=== PATIENT | female | born 1955 | race Caucasian/White ===

== ENCOUNTER 2017-02-18 17:03 | Emergency (ER) | payer OTHER ==
[~2017-02-18] VITALS: Ht 152.4 cm; Wt 50.3 kg
[~2017-02-18 17:03] MED LIST: ALBU18HF IH; ALBU6.7H IH; BUDE10.22 IH; CYCL10TA2 PO; HYDR-2666 PO; HYDR-971 PO; ONDA4TAB10 SL; PANT40TA3 PO; PRED-220 PO; PRED20TA PO; PREG50CA PO; TIZA4TAB PO; TRAM50TA PO
--- NOTE | 2017-02-18 18:15 | RAD ---
PROCEDURE CT head without contrast. CT cervical spine without contrast. HISTORY Fall today with loss of consciousness. Headache and neck pain. TECHNIQUE Noncontrast CT head was obtained. Axial images and coronal and sagittal re-formatted images of the cervical spine were obtained. One or more of the following individualized dose reduction techniques were utilized for this exam: 1. Automated exposure control. 2. Adjustment of the mA and/or kV according to patient's size. 3. Use of iterative reconstruction technique. COMPARISON None. FINDINGS Head: The ventricles and sulci are within normal limits for age. There is no intracranial hemorrhage or extra-axial fluid collection. There is no mass effect or midline shift. Rivera-white differentiation is preserved. There is no depressed skull fracture. The included paranasal sinuses and mastoid air cells are clear. Cervical spine: There is no fracture or dislocation. Prevertebral soft tissues are within normal limits. Craniovertebral junction is unremarkable. Anterior cervical fusion at C5-C6 with incorporated bone cage is noted. There is no significant canal or foraminal compromise apparent, minimal degenerative changes noted at C4-C5. There is apical emphysema. There are carotid artery calcifications. IMPRESSION 1. No acute intracranial findings. 2. Negative for fracture or dislocation in the cervical spine. 3. Anterior cervical fusion of C5-C6. Electronically signed by: Yoel Saenz MD (Feb 18, 2017 18:13:18)
[2017-02-18 18:19] LABS: BILIRUBIN,URINE NEG (NEG); CLARITY,URINE HAZY; COLOR,URINE YELLOW; GLUCOSE,URINE NEG (NEG)
[2017-02-18 18:20] LABS: NITRITE,URINE NEG (NEG); UROBILINOGEN,URINE 0.2 mg/dL (0.2 mg/dL)
[2017-02-18 18:21] LABS: BACTERIA,URINE FEW /HPF (0-FEW); SQUAMOUS EPITHELIAL CELL,UR MANY /LPF
[2017-02-18 18:30] VITALS: BP 146/74
--- NOTE | 2017-02-18 19:02 | PHYS DOC ---
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 There was no loss of consciousness. She complains about pain in her right buttocks she was ambulatory at the scene. She denies any neck pain or radicular symptoms. She states she is worried that this may exacerbate her sciatica. Eyes any bowel or bladder dysfunction or saddle paresthesias. [] Review of Systems Review of Systems Constitutional: Denies fever or chills [] Eyes: Denies change in visual acuity, redness, or eye pain [] HENT: Denies nasal congestion or sore throat [] Respiratory: Denies cough or shortness of breath [] Cardiovascular: No additional information not addressed in HPI [] GI: Denies abdominal pain, nausea, vomiting, bloody stools or diarrhea [] : Denies dysuria or hematuria [] Musculoskeletal: Per history of present illness [] Integument: Denies rash or skin lesions [] Neurologic: Denies headache, focal weakness or sensory changes [] Endocrine: Denies polyuria or polydipsia [] Allergies Allergies Allergies Coded Allergies Type Severity Reaction Last Updated Verified Sulfa (Sulfonamide Antibiotics) Allergy Intermediate 01/19/17 Yes cephalexin Allergy Intermediate 01/19/17 Yes codeine Allergy Intermediate 01/19/17 Yes iodine Allergy Intermediate 01/19/17 Yes egg Allergy Unknown 01/19/17 Yes milk Allergy Unknown 01/19/17 Yes Uncoded Allergies Type Severity Reaction Last Updated Verified FLU SHOT Allergy Unknown 01/19/17 Physical Exam Physical Exam Constitutional: Well developed, well nourished, no acute distress, non-toxic appearance. [] HENT: Normocephalic, atraumatic, bilateral external ears normal, oropharynx moist, no oral exudates, nose normal. [] Eyes: PERRLA, EOMI, conjunctiva normal, no discharge. [] Neck: Normal range of motion, no tenderness, supple, no stridor. [] Cardiovascular:Heart rate regular rhythm, no murmur [] Lungs & Thorax: Bilateral breath sounds clear to auscultation [] Abdomen: Bowel sounds normal, soft, no tenderness, no masses, no pulsatile masses. [] Skin: Warm, dry, no erythema, no rash. [] Back: She is tender in the right lower lumbar paraspinal region no midline tenderness there is no bruising or redness consistent with a contusion in the area. Her thoracic spine is benign her neck is benign to exam including palpation of paraspinal muscles no midline tenderness for range of motion including flexion-extension side bending and rotation.. [] Extremities: No tenderness, no cyanosis, no clubbing, ROM intact, no edema. [] Neurologic: Alert and oriented X 3, normal motor function, normal sensory function, no focal deficits noted. [] Psychologic: Affect normal, judgement normal, mood normal. [] Current Patient Data Vital Signs Vital Signs Date Time Temp Pulse Resp B/P Pulse Ox O2 Delivery O2 Flow Rate FiO2 02/18/17 18:30 98.8 73 20 146/74 98 Room Air Lab Results Laboratory Tests Test 02/18/17 17:30 Urine Collection Type Unknown Urine Color Yellow Urine Clarity Hazy Urine pH 5.5 Urine Specific [place] >=1.030 Urine Protein 30 mg/dl (NEG-TRACE) Urine Glucose (UA) Negmg/dL (NEG) Urine Ketones (Stick) 15mg/dL (NEG) Urine Blood Trace (NEG) Urine Nitrite Neg (NEG) Urine Bilirubin Neg (NEG) Urine Urobilinogen Dipstick 0.2mg/dL (0.2 mg/dL) Urine Leukocyte Esterase Neg (NEG) Urine RBC 1-2/HPF (0-2) Urine WBC 11-20/HPF (0-4) Urine Squamous Epithelial Cells Many/LPF Urine Bacteria Few/HPF (0-FEW) Urine Mucus Marked/LPF EKG EKG [] Radiology/Procedures Radiology/Procedures [] Course & Med Decision Making Course & Med Decision Making Pertinent Labs and Imaging studies reviewed. (See chart for details) [ED course: Evaluation reveals a 61-year-old female who has fortunately not seriously injured by a fall. Her exam showed some tenderness in the lumbar region but nothing significant. I reassured the patient that I think she'll be okay going forward. I think she needs to follow with workman's comp doctor in the next 24-48 hours for reevaluation.] Sabrina Disclaimer Kiarraon Disclaimer This chart was dictated in whole or in part using Voice Recognition software in a busy, high-work load, and often noisy Emergency Department environment. It may contain unintended and wholly unrecognized errors or omissions. Departure Departure: Impression: Primary Impression: Low back pain Referrals: FLO MARTIN (PCP) Patient Instructions: Back Pain, Adult Additional Instructions: Follow with Workmen's Comp. physician in the next 24 hours for recheck. I would take Tylenol or Motrin for discomfort. Problem Qualifiers Primary Impression: Low back pain Chronicity: acute Back pain laterality: right Sciatica presence: without sciatica Qualified Code: M54.5 - Low back pain KRISTI WOODALL DO Feb 18, 2017 19:02
[2017-02-18] MEDS ORDERED: ACETAMINOPHEN 500 MG TABLET PO ONE (19:30)
--- NOTE | 2017-02-19 08:05 | RAD ---
Indication fall, pain. AP and lateral views of the lumbar spine were obtained as well as a coned view targeted to the lumbosacral junction. Vertebral height alignment and disc spaces appear unremarkable. An acute bony finding is not seen. Significant degenerative changes involving the lumbar spine are not seen. IMPRESSION: No acute or significant bony finding
--- NOTE | 2017-02-19 08:06 | RAD ---
Indication injury associated with a fall. AP oblique and lateral views of the left elbow were obtained. No bony abnormality is seen
== END 2017-02-18 19:15 | disposition home or self-care (01) ==
LOC: ER 17:03
DX: M54.5 Low back pain (principal); G89.29 Other chronic pain; J45.909 Unspecified asthma, uncomplicated; F17.210 Nicotine dependence, cigarettes, uncomplicated; Z88.5 Allergy status to narcotic agent; Z88.2 Allergy status to sulfonamides; Z88.8 Allergy status to other drugs, medicaments and biological substances; Z88.1 Allergy status to other antibiotic agents; Z91.041 Radiographic dye allergy status; Z91.012 Allergy to eggs; Z91.011 Allergy to milk products; W01.0XXA Fall on same level from slipping, tripping and stumbling without subsequent striking against object, initial encounter; Y93.89 Activity, other specified; Y99.0 Civilian activity done for income or pay; Y92.89 Other specified places as the place of occurrence of the external cause
CPT/HCPCS: 70450; 72100; 72125; 73080; 81001; 87086; 99285-25

== ENCOUNTER 2017-03-09 13:35 | Emergency (ER) | payer OTHER ==
[~2017-03-09] VITALS: Ht 152.4 cm; Wt 50.3 kg
[2017-03-09 13:50] VITALS: BP 167/88
[2017-03-09] MEDS ORDERED: DEXAMETHASONE SOD PHOS 10 MG/ML VIAL ONE (14:38)
--- NOTE | 2017-03-09 15:26 | ED.ADGEN ---
Past History Past Medical History: Asthma Past Surgical History: No Surgical History Smoking: Less than 1pk/day Alcohol Use: None Drug Use: None Adult General HPI HPI Patient is a 61-year-old female presents emergency department complaining of low back pain. This is similar to the back pain that she has had multiple times in the past. She denies any bowel or bladder dysfunction. Denies any saddle anesthesia. She has not had any new trauma to the area except for the fall she sustained was seen for a couple weeks ago. Review of Systems Review of Systems Constitutional: Denies fever or chills [] Eyes: Denies change in visual acuity, redness, or eye pain [] HENT: Denies nasal congestion or sore throat [] Respiratory: Denies cough or shortness of breath [] Cardiovascular: No additional information not addressed in HPI [] GI: Denies abdominal pain, nausea, vomiting, bloody stools or diarrhea [] : Denies dysuria or hematuria [] Musculoskeletal: Denies back pain or joint pain [] Integument: Denies rash or skin lesions [] Neurologic: Denies headache, focal weakness or sensory changes [] Endocrine: Denies polyuria or polydipsia [] Current Medications Current Medications Current Medications Medications (Trade) Dose Ordered Sig/Jayme Start Time Stop Time Status Last Admin Dose Admin Dexamethasone Sodium Phosphate (Decadron) 10 mg STK-MED ONCE 03/09/17 14:38 03/09/17 14:57 DC Allergies Allergies Allergies Coded Allergies Type Severity Reaction Last Updated Verified Sulfa (Sulfonamide Antibiotics) Allergy Intermediate 01/19/17 Yes cephalexin Allergy Intermediate 01/19/17 Yes codeine Allergy Intermediate 01/19/17 Yes iodine Allergy Intermediate 01/19/17 Yes egg Allergy Unknown 01/19/17 Yes milk Allergy Unknown 01/19/17 Yes Uncoded Allergies Type Severity Reaction Last Updated Verified FLU SHOT Allergy Unknown 01/19/17 Physical Exam Physical Exam Constitutional: Well developed, well nourished, no acute distress, non-toxic appearance. [] HENT: Normocephalic, atraumatic, bilateral external ears normal, oropharynx moist, no oral exudates, nose normal. [] Eyes: PERRLA, EOMI, conjunctiva normal, no discharge. [] Neck: Normal range of motion, no tenderness, supple, no stridor. [] Cardiovascular:Heart rate regular rhythm, no murmur [] Lungs & Thorax: Bilateral breath sounds clear to auscultation [] Abdomen: Bowel sounds normal, soft, no tenderness, no masses, no pulsatile masses. [] Skin: Warm, dry, no erythema, no rash. [] Back: Lumbar paraspinal tenderness to palpation bilaterally, no CVA tenderness. [] Extremities: No tenderness, no cyanosis, no clubbing, ROM intact, no edema. [] Neurologic: Alert and oriented X 3, normal motor function, normal sensory function, no focal deficits noted. [] Psychologic: Affect normal, judgement normal, mood normal. [] EKG EKG [] Radiology/Procedures Radiology/Procedures [] Course & Med Decision Making Course & Med Decision Making Pertinent Labs and Imaging studies reviewed. (See chart for details) Patient received another dose of Decadron here as well as prescription for [place]. She was given follow-up and supportive care instructions. [] Final Impression Final Impression Low back pain [] Problems: Dragon Disclaimer Dragon Disclaimer This electronic medical record was generated, in whole or in part, using a voice recognition dictation system. MARTY RIVAS MD Mar 09, 2017 15:26
== END 2017-03-09 14:45 | disposition home or self-care (01) ==
LOC: ER 13:35
DX: M54.5 Low back pain (principal); J45.909 Unspecified asthma, uncomplicated; F17.200 Nicotine dependence, unspecified, uncomplicated; Z88.2 Allergy status to sulfonamides; Z88.7 Allergy status to serum and vaccine; Z88.1 Allergy status to other antibiotic agents; Z91.041 Radiographic dye allergy status; Z91.012 Allergy to eggs; Z91.011 Allergy to milk products
CPT/HCPCS: 99283

== ENCOUNTER → 2017-03-17 | Outpatient (CLI) | payer OTHER ==
[2017-03-09 13:50] VITALS: BP 167/88
--- NOTE | 2017-03-17 16:31 | RAD ---
Indication incontinence. Grayscale imaging targeted to the kidneys was performed. The right kidney measures 9.6 x 5 x 4.7 cm. There is no hydronephrosis or mass. The left kidney measures 10 x 4.5 x 4.4 cm and also appears normal. The urinary bladder appears grossly normal. There was a minimal post void residual estimated at 11 cm. IMPRESSION: Normal morphologic appearance of the kidneys
== END | disposition home or self-care (01) ==
LOC: US 14:27
PROVIDERS: ATTEND Nurse Practitioner Occupational Health
DX: N39.41 Urge incontinence (principal)
CPT/HCPCS: 76770

== ENCOUNTER 2017-03-24 07:47 | Emergency (ER) | payer OTHER ==
[2017-03-24 07:50] VITALS: BP 156/69
--- NOTE | 2017-03-24 08:26 | ED.ADGEN ---
Past History Past Medical History: Asthma Past Surgical History: No Surgical History Smoking: Less than 1pk/day Alcohol Use: None Drug Use: None Adult General Chief Complaint Chief Complaint headache, chest pain HPI HPI Patient is a 61 year old female who presents with achy chest pain since last , 5 days ago, substernal, nonradiating, no exacerbating or relieving factors, temporal headache since yesterday. Normally headaches resolve with Tylenol. She did take 1/2 of her normal Lortab tablets which she takes for her chronic back pain and this did not relieve her headache. The dosage of the Tylenol would have been 162 mg. No known cardiac disease, no history of DVT or PE. She does have a history of asthma has not used any of her albuterol today. Patient did take 2 of her anxiety medications this morning due to the headache. Patient sees Nasra monte, no cardiac disease for her, she had a grandfather had an PA in his 70s and has a sister who had double bypass. Review of Systems Review of Systems Constitutional: Denies fever or chills [] Eyes: Denies change in visual acuity, redness, or eye pain [] HENT: Denies nasal congestion or sore throat [] Respiratory: Denies cough or shortness of breath [] Cardiovascular: No additional information not addressed in HPI [] GI: Denies abdominal pain, nausea, vomiting, bloody stools or diarrhea [] : Denies dysuria or hematuria [] Musculoskeletal: Denies back pain or joint pain [] Integument: Denies rash or skin lesions [] Neurologic: Reports headache, denies focal weakness or sensory changes [] ] Current Medications Current Medications Current Medications Medications (Trade) Dose Ordered Sig/Jayme Start Time Stop Time Status Last Admin Dose Admin Albuterol/ Ipratropium (Duoneb) 3 ml 1X ONCE 03/24/17 08:45 03/24/17 08:46 DC 03/24/17 08:51 3 ML Diphenhydramine HCl (Benadryl) 25 mg 1X ONCE 03/24/17 08:45 03/24/17 08:46 DC 03/24/17 08:52 25 MG Fentanyl Citrate (Fentanyl 2ml Vial) 50 mcg 1X ONCE 03/24/17 08:45 03/24/17 08:46 DC 03/24/17 08:52 50 MCG Morphine Sulfate (Morphine 4mg Syringe) 4 mg 1X ONCE 03/24/17 08:30 03/24/17 08:30 DC Prochlorperazine Edisylate (Compazine) 10 mg 1X ONCE 03/24/17 08:45 03/24/17 08:46 DC 03/24/17 08:53 10 MG Allergies Allergies Allergies Coded Allergies Type Severity Reaction Last Updated Verified Sulfa (Sulfonamide Antibiotics) Allergy Intermediate 01/19/17 Yes cephalexin Allergy Intermediate 01/19/17 Yes codeine Allergy Intermediate 01/19/17 Yes iodine Allergy Intermediate 01/19/17 Yes egg Allergy Unknown 01/19/17 Yes milk Allergy Unknown 01/19/17 Yes Uncoded Allergies Type Severity Reaction Last Updated Verified FLU SHOT Allergy Unknown 01/19/17 Physical Exam Physical Exam Constitutional: Well developed, well nourished, no acute distress, non-toxic appearance. [] HENT: Normocephalic, atraumatic, bilateral external ears normal, oropharynx moist, no oral exudates, nose normal. [] Eyes: PERRLA, EOMI, conjunctiva normal, no discharge. [] Neck: Normal range of motion, no tenderness, supple, no stridor. [] Cardiovascular:Heart rate regular with regular rhythm, no murmur [] Lungs & Thorax: Bilateral breath sounds, poor air movement diffusely, no appreciable wheeze or crackles Abdomen: soft, no tenderness, no masses, no pulsatile masses. [] Skin: Warm, dry, no erythema, no rash. [] Back: No tenderness, no CVA tenderness. [] Extremities: No tenderness, no cyanosis, no clubbing, ROM intact, no edema. [] Neurologic: Alert and oriented X 3, normal motor function, normal sensory function, no focal deficits noted. [] Psychologic: Affect normal, judgement normal, mood normal. [] Current Patient Data Vital Signs Vital Signs Date Time Temp Pulse Resp B/P Pulse Ox O2 Delivery O2 Flow Rate FiO2 03/24/17 08:55 99 Room Air 03/24/17 08:52 20 03/24/17 07:50 98.2 88 Lab Results Laboratory Tests Test 03/24/17 08:10 Sodium Level 139mmol/L (136-145) Potassium Level 4.0mmol/L (3.5-5.1) Chloride Level 104mmol/L (98-107) Carbon Dioxide Level 26mmol/L (21-32) Anion Gap 9 (6-14) Blood Urea Nitrogen 18mg/dL (7-20) Creatinine 0.8mg/dL (0.6-1.0) Estimated GFR (Cockcroft-Gault) 73.4 Glucose Level 93mg/dL (70-99) Calcium Level 9.4mg/dL (8.5-10.1) Troponin I Quantitative < 0.017ng/mL (0-0.055) EKG EKG 78 bpm, sinus, normal axis, normal intervals, no ST elevation or depression, nonischemic T waves [] Radiology/Procedures Radiology/Procedures [] Course & Med Decision Making Course & Med Decision Making Pertinent Labs and Imaging studies reviewed. (See chart for details) patient already taken a full dose aspirin today. Pt given IV compazine, benadryl , fentanyl. XRay, labs, ekg completed. No acute findings. Pt's symptoms resolved. Unlikely ACS as constant, atypical in nature, neg trop after several days of pain. Pt to f/u with PCP, return precautions given. Final Impression Final Impression atypical chest pain headache[] Problems: Dragon Disclaimer Dragon Disclaimer This electronic medical record was generated, in whole or in part, using a voice recognition dictation system. ANDREY ACEVEDO MD Mar 24, 2017 08:26
[2017-03-24] MEDS ORDERED: MORPHINE SULFATE 4 MG/ML DISP.SYRIN. IV ONE (08:30)
[2017-03-24] MEDS ORDERED: DIPHENHYDRAMINE 50 MG/ML VIAL IVP ONE (08:45)
[2017-03-24] MEDS ORDERED: PROCHLORPERAZINE 10 MG/2 ML VIAL. IV ONE (08:45)
[2017-03-24] MEDS ORDERED: FENTANYL PF 100 MCG/2 ML VIAL. IV ONE (08:45)
[2017-03-24] MEDS ORDERED: IPRATRPIUM/ALBUTEROL 0.5/2.5MG 3 ML NEBU. NEB ONE (08:45)
--- NOTE | 2017-03-24 08:49 | RAD ---
Chest, 2 views, 03/24/2017: History: Chest pain Comparison is made to a study from 11/18/2016. The heart size is normal. No pulmonary infiltrates are seen. There is no evidence of pleural fluid. A surgical plate and screws is evident in the lower cervical spine. There are scattered degenerative changes in the thoracic spine. IMPRESSION: No acute cardiopulmonary abnormality is detected.
[2017-03-24 09:22] LABS: CALCIUM 9.4 mg/dL (8.5-10.1); CREATININE 0.8 mg/dL (0.6-1.0); GFR 73.4
--- NOTE | 2017-03-24 11:29 | EKG ---
[address] [address] Test Date: 2017-03-24 Test Time: 08:02:31 Pat Name: AMY CAREY Department: Room: Gender: F Manufacturing Plant Technician: ASHER : [id number] Requested By: ANDREY ACEVEDO Order Number: [id number] Reading MD: Gilson Hairston Measurements Intervals [place] Rate: 78 P: 59 AK: 152 QRS: 95 QRSD: 76 T: 58 QT: 380 QTc: 437 Interpretive Statements SINUS RHYTHM Electronically Signed On 03-24-2017 16:03:02 CDT by Gilson Hairston
== END 2017-03-24 10:15 | disposition home or self-care (01) ==
LOC: ER 07:47
DX: R07.89 Other chest pain (principal); R51 Headache; J45.909 Unspecified asthma, uncomplicated; F17.200 Nicotine dependence, unspecified, uncomplicated; Z88.5 Allergy status to narcotic agent; Z88.2 Allergy status to sulfonamides; Z88.1 Allergy status to other antibiotic agents; Z91.012 Allergy to eggs; Z91.011 Allergy to milk products
CPT/HCPCS: 36415; 71020; 80048; 84484; 93005; 94640; 96374; 96375; 99285; J0780; J1200; J3010; J7620

== ENCOUNTER → 2018-07-07 | Outpatient (CLI) | payer OTHER ==
[~2018-07-07] MED LIST changes: +CYCL-331 PO; -CYCL10TA2 PO; -HYDR-2666 PO; +HYDR-2758 PO
--- NOTE | 2018-07-07 13:01 | RAD ---
Lumbar spine, 5 views, 07/07/2018: HISTORY: Low back pain The lumbar vertebral heights are well-maintained. There is a minimal lumbar scoliosis. The intervertebral disc spaces are well preserved. There are mild scattered marginal spurs. There are mild degenerative changes involving facet joints in the lower lumbar spine. No spondylolysis is evident. Aortic calcific plaquing is present. Moderate amount stool and gas is noted throughout the colon. IMPRESSION: 1. Mild multilevel degenerative change. 2. No acute bony abnormality is detected. Electronically signed by: Preston Robles MD (07/07/2018 12:57 PM) [facility]
== END | disposition home or self-care (01) ==
LOC: PMG 08:48
PROVIDERS: ATTEND Physician Assistant Medical
DX: M47.896 Other spondylosis, lumbar region (principal); M41.86 Other forms of scoliosis, lumbar region; M77.8 Other enthesopathies, not elsewhere classified; J44.1 Chronic obstructive pulmonary disease with (acute) exacerbation; Z87.891 Personal history of nicotine dependence; Z91.011 Allergy to milk products; Z91.012 Allergy to eggs; Z88.1 Allergy status to other antibiotic agents; Z88.2 Allergy status to sulfonamides; Z88.7 Allergy status to serum and vaccine; Z88.5 Allergy status to narcotic agent; Z88.8 Allergy status to other drugs, medicaments and biological substances
CPT/HCPCS: 72110

== ENCOUNTER → 2020-07-04 | Outpatient (CLI) | payer BC ==
[~2020-07-04] MED LIST changes: -ALBU18HF IH; +ALBU2.5V8 IH; -ALBU6.7H IH; +HYDR-2155 PO; -HYDR-2758 PO; +HYDR-3165 PO; -HYDR-971 PO; -TIZA4TAB PO; +TIZA4TAB2 PO
--- NOTE | 2020-07-04 14:40 | RAD ---
Right femur 2 views INDICATION: Pain COMPARISON: No relevant comparisons currently available FINDINGS: Proximal right femoral shaft fracture reduced and fixated by an intramedullary nail with 2 dynamic hip screws is evident with callus formation across the fracture line but incomplete osseous bridging. Well-corticated ossific density projecting medial to the right femoral neck is incidentally noted. Significant periprosthetic lucency is not appreciated. No new fracture. The distal femoral shaft is unremarkable with a single interlocking screw fixating the distal hardware tip. IMPRESSION: Incomplete osseous bridging status post ORIF of a proximal right femoral shaft fracture as described. No new fracture Electronically signed by: Kenney Bran MD (07/04/2020 2:37 PM) [id number]
== END | disposition home or self-care (01) ==
LOC: DXRAD 13:42
PROVIDERS: ATTEND Physician Assistant
DX: M79.651 Pain in right thigh (principal); Z98.890 Other specified postprocedural states
CPT/HCPCS: 73552

== ENCOUNTER → 2020-08-01 | Outpatient (CLI) | payer BC ==
--- NOTE | 2020-08-01 15:45 | RAD ---
Right femur 2 views INDICATION: Follow-up fracture COMPARISON: 07/04/2020 right femur x-rays FINDINGS: AP and frog-leg lateral views of the right femur show intramedullary nail and dynamic hip screw fixation of a proximal right femoral diaphyseal fracture with further interval callus formation around the fracture line and less distinct fracture margins. Alignment is unchanged. No no acute osseous abnormalities are noted. The soft tissues are unremarkable. IMPRESSION: Further partial interval healing of the proximal right femoral shaft fracture status post IM nail and dynamic hip screw fixation. Electronically signed by: Kenney Bran MD (08/01/2020 3:42 PM) [id number]
== END | disposition home or self-care (01) ==
LOC: DXRAD 13:03
PROVIDERS: ATTEND Physician Assistant
DX: S72.8X1D Other fracture of right femur, subsequent encounter for closed fracture with routine healing (principal); Z98.890 Other specified postprocedural states; X58.XXXD Exposure to other specified factors, subsequent encounter
CPT/HCPCS: 73552

== ENCOUNTER → 2020-08-20 | Outpatient (CLI) | payer BC ==
--- NOTE | 2020-08-20 18:10 | RAD ---
EXAM: KNEE LEFT 3V 08/20/2020 12:00 AM CLINICAL INDICATION:Knee pain, tripped last night COMPARISON:None TECHNIQUE:3 views of the left knee. FINDINGS:No acute fracture. Alignment is normal. There is a 1.9 x 2.2 cm sclerotic and lucent lesion in the distal femoral metaphysis, indeterminate. Trace joint effusion. IMPRESSION: 1. No acute fracture. 2. Indeterminate 2.2 cm distal femoral lesion. Recommend MRI with and without contrast to further evaluate. Electronically signed by: Deb Kerr MD (08/20/2020 6:08 PM) [id number]
== END | disposition home or self-care (01) ==
LOC: RAD 14:47
PROVIDERS: ATTEND Physician Assistant
DX: M25.862 Other specified joint disorders, left knee (principal); M25.562 Pain in left knee
CPT/HCPCS: 73562

== ENCOUNTER 2020-09-05 14:01 | Emergency (ER) | payer BC ==
[~2020-09-05] VITALS: Ht 152.4 cm; Wt 51.0 kg
[2020-09-05 15:45] VITALS: BP 215/105
--- NOTE | 2020-09-05 16:08 | PHYS DOC ---
Past History Past Medical History: Asthma, COPD, Hypertension, Other Additional Past Medical Histor: Chronic pain Past Surgical History: Hip Replacement Smoking: Less than 1pk/day Alcohol Use: None Drug Use: None General Adult EDM: Chief Complaint: BACK PAIN OR INJURY HPI: HPI: Genny Valenzuela is a 64-year-old female who presents with chronic back pain stemming from a fall approximately 4.5 months prior to arrival. She states that she fell flat on her back in the bathroom and significantly injured her right hip, which has not improved. Current flareup of pain has lasted approximately 6 to 8 days. Patient denies trauma at onset of flare, fever, neck pain, history of IV drug abuse, and urinary incontinence at this time. She denies trauma or doing anything unusual for her normal routine during this period. She affirms having an MRI of her lumbar spine, which revealed left-sided disc herniation throughout the lumbar spine. She is in the process of obtaining an order for an MRI of her thoracic spine due to the recent development of "knuckles" on her back over the last 6 days. Her pain is currently being managed by Dr. Johnathan Mcclelland from whom she receives hydrocodone and Zanaflex regularly. This controls her pain but she ran out of her prescription and it has not been refilled at her pharmacy at this moment. Patient denies allergies to pain medications. Review of Systems: Review of Systems: Constitutional: Denies fever or chills Eyes: Denies redness or eye pain HENT: Denies nasal congestion or sore throat Respiratory: Denies cough or shortness of breath Cardiovascular: Denies chest pain or palpitations GI: Denies abdominal pain, nausea, or vomiting : Denies dysuria or hematuria Musculoskeletal: Denies joint pain; affirms back pain Integument: Denies rash or skin lesions Neurologic: Denies headache, focal weakness or sensory changes Complete systems were reviewed and found to be within normal limits, except as documented in this note. Allergies: Allergies: Allergies Coded Allergies Type Severity Reaction Last Updated Verified Sulfa (Sulfonamide Antibiotics) Allergy Intermediate 01/19/17 Yes cephalexin Allergy Intermediate 01/19/17 Yes codeine Allergy Intermediate 01/19/17 Yes iodine Allergy Intermediate 01/19/17 Yes egg Allergy Unknown 01/19/17 Yes milk Allergy Unknown 01/19/17 Yes Uncoded Allergies Type Severity Reaction Last Updated Verified FLU SHOT Allergy Unknown 01/19/17 Physical Exam: PE: Constitutional: Well developed, well nourished, no acute distress, non-toxic appearance HENT: Normocephalic, atraumatic Eyes: PERRL, EOMI, conjunctiva normal, no discharge Neck: Normal range of motion, no tenderness, supple Lungs & Thorax: No respiratory distress, equal chest rise and fall Abdomen: Soft, no tenderness Skin: Warm, dry, no erythema, no rash Back: Mild midline tenderness to palpation approximately T8-T12, with significant kyphosis Extremities: No tenderness, ROM intact, no edema Neurologic: Alert and oriented X 3, normal motor function, normal sensory function, no focal deficits noted, 5 out of 5 strength in lower extremity bilaterally, sensation intact in lower extremity bilaterally Psychologic: Affect normal, judgment normal Current Patient Data: Vital Signs: Vital Signs Date Time Temp Pulse Resp B/P (MAP) Pulse Ox O2 Delivery O2 Flow Rate FiO2 09/05/20 15:45 97.9 104 16 215/105 (141) 98 Room Air Course & Med Decision Making: Course & Med Decision Making Patient presented with back pain as presented above. Given the chronic nature of patient's pain with ongoing pain management with the physician, patient will be provided symptomatic control with single dose of hydrocodone. She did not drive to the emergency department today and has a ride home with her sister. Patient is advised to continue her prescription regiment as prescribed by pain management. Sabrina Disclaimer: Sabrina Disclaimer: This electronic medical record was generated, in whole or in part, using a voice recognition dictation system. Departure Departure: Impression: Primary Impression: Chronic back pain Qualified Codes: M54.6 - Pain in thoracic spine; G89.29 - Other chronic pain Disposition: HOME/RESIDENCE PRIOR TO ADM Condition: STABLE Referrals: FLO MARTIN (PCP) Patient Instructions: Chronic Back Pain Additional Instructions: Please follow up closely with your pain management physician. MEENA MOHAN DO Sep 05, 2020 16:07
[2020-09-05] MEDS ORDERED: HYDROcodone/APAP 5/325MG 1 TAB TABLET PO ONE (16:15)
[2020-09-05] MEDS ORDERED: ORPHENADRINE CITRATE 60 MG/2 ML VIAL. IM ONE (16:30)
== END 2020-09-05 16:38 | disposition home or self-care (01) ==
LOC: ER 14:01
DX: G89.29 Other chronic pain (principal); M54.6 Pain in thoracic spine; J44.9 Chronic obstructive pulmonary disease, unspecified; I10 Essential (primary) hypertension; F17.200 Nicotine dependence, unspecified, uncomplicated; Z88.2 Allergy status to sulfonamides; Z88.1 Allergy status to other antibiotic agents; Z88.5 Allergy status to narcotic agent; Z91.012 Allergy to eggs; Z91.011 Allergy to milk products; Z88.8 Allergy status to other drugs, medicaments and biological substances
CPT/HCPCS: 96372; 99283; J2360

== ENCOUNTER → 2020-09-07 | Outpatient (CLI) | payer BC ==
[2020-09-05 15:45] VITALS: BP 215/105
--- NOTE | 2020-09-07 10:26 | RAD ---
RIGHT FEMUR XRAY 09/07/2020 12:00 AM INDICATION: Closed, displaced subtrochanteric fracture of the right femur COMPARISON: 08/01/2020. TECHNIQUE: 4 views of the right femur are provided. FINDINGS/ IMPRESSION: 1. Postoperative changes are identified from intramedullary elidia and dynamic compression screw fixation of the right femur. 2. Continued osseous healing involving subtrochanteric fracture. Osseous bridging is noted. No new fractures identified. No lucency surrounding the hardware. No significant soft tissue abnormality. Electronically signed by: Elizabeth Hall MD (09/07/2020 10:23 AM) [facility]
== END ==
LOC: DXRAD 09:41
PROVIDERS: ATTEND Physician Assistant
DX: S72.21XD Displaced subtrochanteric fracture of right femur, subsequent encounter for closed fracture with routine healing (principal); X58.XXXD Exposure to other specified factors, subsequent encounter
CPT/HCPCS: 73552

== ENCOUNTER 2020-10-06 12:55 | Emergency (ER) | payer BC ==
[~2020-10-06] VITALS: Ht 152.4 cm; Wt 51.0 kg
--- NOTE | 2020-10-06 13:37 | PHYS DOC ---
Past History Past Medical History: Asthma, COPD, Hypertension, Other Additional Past Medical Histor: Chronic pain Past Surgical History: Hip Replacement Smoking: Less than 1pk/day Alcohol Use: None Drug Use: None General Adult EDM: Chief Complaint: BACK INJURY HPI: HPI: 64-year-old female presents with chest tightness and bandlike pain around her chest. Patient recently had a T10 compression fracture stabilization procedure. For the last 2 days she has had this pain wrapping around from the back to the front. She does not really have shortness of breath she does has more pain with breathing. She denies diaphoresis. She has not had a fever. She is taking her pain medications as prescribed and it is not helping enough with this pain. She does want to make sure there is no more significant problem. She is not normally on oxygen at home, but feels better wearing oxygen. Review of Systems: Review of Systems: Constitutional: Denies fever or chills Eyes: Denies change in visual acuity HENT: Denies nasal congestion or sore throat Respiratory: Denies cough or shortness of breath Cardiovascular: Chest pain GI: Epigastric abdominal pain. Denies nausea, vomiting, bloody stools or diarrhea : Denies dysuria Musculoskeletal: Denies back pain or joint pain Integument: Denies rash Neurologic: Denies headache, focal weakness or sensory changes Endocrine: Denies polyuria or polydipsia Lymphatic: Denies swollen glands Psychiatric: Denies depression or anxiety Allergies: Allergies: Allergies Coded Allergies Type Severity Reaction Last Updated Verified Sulfa (Sulfonamide Antibiotics) Allergy Intermediate 01/19/17 Yes cephalexin Allergy Intermediate 01/19/17 Yes codeine Allergy Intermediate 01/19/17 Yes iodine Allergy Intermediate 01/19/17 Yes egg Allergy Unknown 01/19/17 Yes milk Allergy Unknown 01/19/17 Yes Uncoded Allergies Type Severity Reaction Last Updated Verified FLU SHOT Allergy Unknown 01/19/17 Physical Exam: PE: Constitutional: Well developed, well nourished, mild acute distress, non-toxic appearance. [] HENT: Normocephalic, atraumatic, bilateral external ears normal, oropharynx moist, no oral exudates, nose normal. [] Eyes: PERRLA, EOMI, conjunctiva normal, no discharge. [] Neck: Normal range of motion, no tenderness, supple, no stridor. [] Cardiovascular: Heart rate regular rhythm, no murmur [] Lungs & Thorax: Bilateral breath sounds significantly diminished bilaterally [] Abdomen: Bowel sounds normal, soft, no tenderness, no masses, no pulsatile masses. [] Skin: Warm, dry, no erythema, no rash. [] Back: No tenderness, no CVA tenderness. [] Extremities: No tenderness, no cyanosis, no clubbing, ROM intact, no edema. [] Neurologic: Alert and oriented X 3, normal motor function, normal sensory function, no focal deficits noted. [] Psychologic: Affect normal, judgement normal, mood normal. [] EKG: EKG: [] Radiology/Procedures: Radiology/Procedures: [] Impressions: PQRS Compliance Statement: One or more of the following individualized dose reduction techniques were utilized for this examination: 1. Automated exposure control 2. Adjustment of the mA and/or kV according to patient size 3. Use of iterative reconstruction technique CT CHEST ABDOMEN WO CONTRAST Clinical Indication: Reason: wide pulse pressure, chest pain, Comparison: None. TECHNIQUE: Helical CT imaging of the chest and abdomen is performed without IV contrast. Per report, patient has iodine allergy. Findings: Evaluation of vascular structures, solid organs and bowel is limited without oral and IV contrast, decreasing sensitivity for detection of pathology. The great vessels are normal caliber. No mediastinal hematoma. Cannot evaluate for dissection without IV contrast. There is coronary artery disease. There is no mediastinal adenopathy. Cardiac size is normal, no pericardial effusion. There is no pleural abnormality. There is a large bulla in the posterior upper right hemithorax measuring up to 8.6 cm. Central airways are patent. There is moderate centrilobular and paraseptal emphysema. Mild scarring or atelectasis in the inferior lingula. Liver, gallbladder, spleen, pancreas, adrenal glands, and kidneys are normal. Moderate atherosclerotic calcification of the abdominal aorta, no aneurysm. No obvious abnormality of the stomach. No dilated small bowel. The appendix is not imaged. Visualized colon without wall thickening. No abdominal adenopathy or free fluid. There are old compression fractures of the T9, T10, and T11 vertebral bodies. T10 has been treated with vertebroplasty. There is right hip screw and intramedullary elidia. Anterior cervical spine fusion hardware is partially seen. IMPRESSION: 1. No acute abnormality in the chest or abdomen. 2. Moderate pulmonary emphysema. Electronically signed by: Dallas Borjas MD (10/06/2020 3:39 PM) [id number] DICTATED AND SIGNED BY: DALLAS BORJAS MD DATE: 10/06/20 1539 CC: JEREMY ROSSI DO; FLO MARTIN ~ Heart Score: Risk Factors: Risk Factors: DM, Current or recent (<one month) smoker, HTN, HLP, family history of CAD, obesity. Risk Scores: Score 0 - 3: 2.5% MACE over next 6 weeks - Discharge Home Score 4 - 6: 20.3% MACE over next 6 weeks - Admit for Clinical Observation Score 7 - 10: 72.7% MACE over next 6 weeks - Early Invasive Strategies Course & Med Decision Making: Course & Med Decision Making Pertinent Labs and Imaging studies reviewed. (See chart for details) Patient's labs are unremarkable. Based on her presentation I was concerned about possible dissection so I ordered a CTA of the chest and abdomen. She is allergic to contrast so we did without contrast. There does not appear to be acute findings of the chest or abdomen. The patient was given some fentanyl and this helped with the pain. I believe this is just pain [id number] from her procedure. She has pain medicine for home. She is stable for discharge at this time. [] Dragon Disclaimer: Dragcarlita Disclaimer: This electronic medical record was generated, in whole or in part, using a voice recognition dictation system. Departure Departure: Referrals: FLO MARTIN (PCP) JEREMY ROSSI DO Oct 06, 2020 13:37
--- NOTE | 2020-10-06 13:53 | EKG ---
[address] [address] Test Date: 2020-10-06 Test Time: 13:41:14 Pat Name: AMY CAREY Department: Room: Gender: F Bed Worker: NANETTE : 1955 Requested By: JEREMY ROSSI Order Number: [id number] Reading MD: Measurements Intervals [place] Rate: 85 P: 58 [place]: 130 QRS: 98 QRSD: 78 T: 78 QT: 354 QTc: 421 Interpretive Statements SINUS RHYTHM RIGHTWARD AXIS OTHERWISE NORMAL ECG RI6.02 No previous ECG available for comparison
--- NOTE | 2020-10-06 14:06 | RAD ---
CHEST AP ONLY History: Reason: SOB / Spl. Instructions: / History: Comparison: March 24, 2017 Findings: No consolidation or pleural effusion. Normal heart size. No pneumothorax. Postoperative changes lower cervical spine. Impression: 1. No acute cardiopulmonary process. Electronically signed by: Stan Martin DO (10/06/2020 2:03 PM) [facility] [place]
[2020-10-06] MEDS ORDERED: ONDANSETRON PF 4 MG/2 ML VIAL. IVP ONE (14:30)
[2020-10-06] MEDS ORDERED: MORPHINE SULFATE 4 MG/ML DISP.SYRIN. IV ONE (14:30)
[2020-10-06 14:46] LABS: BASO % 0 % (0-3); CALCIUM 9.5 mg/dL (8.5-10.1); CREATININE 0.8 mg/dL (0.6-1.0); EOS # 0.1 x10^3/uL (0.0-0.7); EOS % 1 % (0-3); GFR 72.7; HEMATOCRIT 42.2 % (36.0-47.0); HEMOGLOBIN 14.1 g/dL (12.0-15.5); LYMPH # 2.1 x10^3/uL (1.0-4.8); LYMPH % 20 % (24-48); MEAN CORPUSCULAR HEMOGLOBIN 32 pg (25-35); MEAN CORPUSCULAR HGB CONC 33 g/dL (31-37); MEAN CORPUSCULAR VOLUME 95 fL (79-100); MONO # 0.7 x10^3/uL (0.0-1.1); MONO % 7 % (0-9); NEUT # 7.7 x10^3uL (1.8-7.7); NEUT % 73 % (31-73); PLATELET COUNT 225 x10^3/uL (140-400); RED BLOOD COUNT 4.44 x10^6/uL (3.50-5.40); RED CELL DISTRIBUTION WIDTH 15.9 % (11.5-14.5); WHITE BLOOD COUNT 10.6 x10^3/uL (4.0-11.0)
[2020-10-06 14:53] LABS: ALBUMIN 3.8 g/dL (3.4-5.0); ALBUMIN/GLOBULIN RATIO 1.2 (1.0-1.7); TOTAL BILIRUBIN 0.4 mg/dL (0.2-1.0); TOTAL PROTEIN 7.1 g/dL (6.4-8.2)
--- NOTE | 2020-10-06 15:42 | RAD ---
PQRS Compliance Statement: One or more of the following individualized dose reduction techniques were utilized for this examination: 1. Automated exposure control 2. Adjustment of the mA and/or kV according to patient size 3. Use of iterative reconstruction technique CT CHEST ABDOMEN WO CONTRAST Clinical Indication: Reason: wide pulse pressure, chest pain, Comparison: None. TECHNIQUE: Helical CT imaging of the chest and abdomen is performed without IV contrast. Per report, patient has iodine allergy. Findings: Evaluation of vascular structures, solid organs and bowel is limited without oral and IV contrast, decreasing sensitivity for detection of pathology. The great vessels are normal caliber. No mediastinal hematoma. Cannot evaluate for dissection without IV contrast. There is coronary artery disease. There is no mediastinal adenopathy. Cardiac size is normal, no pericardial effusion. There is no pleural abnormality. There is a large bulla in the posterior upper right hemithorax measuring up to 8.6 cm. Central airways are patent. There is moderate centrilobular and paraseptal emphysema. Mild scarring or atelectasis in the inferior lingula. Liver, gallbladder, spleen, pancreas, adrenal glands, and kidneys are normal. Moderate atherosclerotic calcification of the abdominal aorta, no aneurysm. No obvious abnormality of the stomach. No dilated small bowel. The appendix is not imaged. Visualized colon without wall thickening. No abdominal adenopathy or free fluid. There are old compression fractures of the T9, T10, and T11 vertebral bodies. T10 has been treated with vertebroplasty. There is right hip screw and intramedullary elidia. Anterior cervical spine fusion hardware is partially seen. IMPRESSION: 1. No acute abnormality in the chest or abdomen. 2. Moderate pulmonary emphysema. Electronically signed by: Dallas Goodwin MD (10/06/2020 3:39 PM) [id number]
[2020-10-06 16:49] VITALS: BP 210/97
== END 2020-10-06 16:54 | disposition home or self-care (01) ==
LOC: ER 12:55
DX: R07.89 Other chest pain (principal); R10.13 Epigastric pain; J44.9 Chronic obstructive pulmonary disease, unspecified; I10 Essential (primary) hypertension; G89.29 Other chronic pain; F17.200 Nicotine dependence, unspecified, uncomplicated; Z88.2 Allergy status to sulfonamides; Z88.1 Allergy status to other antibiotic agents; Z88.5 Allergy status to narcotic agent; Z88.8 Allergy status to other drugs, medicaments and biological substances; Z91.012 Allergy to eggs; Z91.011 Allergy to milk products
CPT/HCPCS: 36415; 71045; 71250; 74150; 80053; 84484; 85025; 93005; 96374; 96375; 96376; 99285; J2060; J2405; J3010

== ENCOUNTER 2020-10-08 19:59 | Emergency (ER) | payer BC ==
[~2020-10-08] VITALS: Ht 152.4 cm; Wt 51.0 kg
--- NOTE | 2020-10-08 20:07 | PHYS DOC ---
Past History Past Medical History: Arthritis, Asthma, Bronchitis, COPD, Hypertension, Migraines, Other Additional Past Medical Histor: Chronic pain Past Medical History Compression Fx's- Thoracic Past Surgical History: Hip Replacement Past Surgical History Vertebral plasty at T10 Smoking: Less than 1pk/day Alcohol Use: None Drug Use: None General Adult HPI: HPI: ".. I was just here.. .. they did a work up... I don't want any work up.. I know whats going on.... its the back pain.. it making me not want to take a deep breath.. it make my COPD worse.. of course the smoking does not help...".. " I got apt. to get the compression fracture at T9 fixed on ,.. I already had T - 10 fixced...".. " I do have anxiety.. and its probably not helping either...".. " Just fix .. the pain.. don't be doing any labs or other stuff. ..just fix the pain.." Patient is a 64 year old female who presents with above hx and complaints back pain which is increasing her anxiety and dyspnea. Patient seen on for similar complaints. Pt. refused , admit,labs and work up until 2245 hrs. The pt.then. agreed to labs and consideration for admission/ transfer. . Patient complaining of increased dyspnea and generalized chest discomfort. Patient rating her pain as 20 out of 10 in her back. Patient's pain is in mid back at lower thoracic level, and radiates around her chest to the front. Patient has been taking Tylenol and Lortabs for her pain. Does have a history of asthma and COPD. Patient has history of migraine headaches and hypertension.. Patient has known history of compression fractures at T-9, 10 and 11. Did recently have vertebroplasty at the 10. Patient does continue to smoke. Patient denies previous coronary artery disease or SC. Patient denies any recent fall or injury. Patient denies any specific ill contacts. No recent travel outside [facility]. Pt. follows with Chris as primary. Review of Systems: Review of Systems: Constitutional: Denies fever or chills Eyes: Denies change in visual acuity HENT: Denies nasal congestion or sore throat Respiratory: Complaints of productive cough and shortness of breath Cardiovascular: Complains of chest pain and dependent leg edema. Complaints of tachycardia GI: Denies abdominal pain, , vomiting, bloody stools or diarrhea . Complains of nausea : Denies dysuria Musculoskeletal: Complains of severe lower thoracic back pain . Integument: Denies rash Neurologic: Denies headache, focal weakness or sensory changes Endocrine: Denies polyuria or polydipsia Lymphatic: Denies swollen glands Psychiatric: Complains of anxiety Family History: Family History: Hx. of Grandfather with CADz, SC in 70's, sister with CADz and CABG x 2, Current Medications: Current Meds: See nursing for home meds Allergies: Allergies: Allergies Coded Allergies Type Severity Reaction Last Updated Verified Sulfa (Sulfonamide Antibiotics) Allergy Intermediate 01/19/17 Yes cephalexin Allergy Intermediate 01/19/17 Yes codeine Allergy Intermediate 01/19/17 Yes iodine Allergy Intermediate 01/19/17 Yes egg Allergy Unknown 01/19/17 Yes milk Allergy Unknown 01/19/17 Yes Uncoded Allergies Type Severity Reaction Last Updated Verified FLU SHOT Allergy Unknown 01/19/17 Physical Exam: PE: Constitutional: inacute distress, non-toxic appearance. [] HENT: Normocephalic, atraumatic, bilateral external ears normal, oropharynx moist, no oral exudates, nose normal. [] Eyes: PERRLA, EOMI, conjunctiva normal, no discharge. [] Neck: Normal range of motion, no tenderness, supple, no stridor. [] Cardiovascular: Tachycardia heart rate regular rhythm, no murmur PMI to the left Lungs & Thorax: Bilateral breath sounds equal apex with scattered wheezing throughout, there is basilar crackles on auscultation [] Abdomen: Bowel sounds decreased, soft, no tenderness, no masses, no pulsatile masses. [] Skin: Warm, dry, no erythema, no rash. [] Back: Severe lower thoracic tenderness, marked kyphosis and scoliosis, does have midline tender nodes on percussion of vertebral bodies, no CVA tenderness. [] Extremities: No tenderness, no cyanosis, no clubbing, ROM intact, no edema. Right hip scar Neurologic: Alert and oriented X 3, normal motor function, normal sensory function, no focal deficits noted. [] Psychologic: Affect anxious, argumentative, judgement normal, mood normal. [] EKG: EKG: My interpretation EKG shows a sinus rhythm at 98 bpm. There is right axis. No findings acute STEMI of contralateral changes. [] Radiology/Procedures: Radiology/Procedures: [][address] [address] IMAGING REPORT Signed PATIENT: AMY CAREY ACCOUNT: [id number] : 1955 LOCATION: ER AGE: 64 SEX: F EXAM STATUS: REG ER ORD. PHYSICIAN: JEREMY ROSSI DO REASON: wide pulse pressure, chest pain, rule out dissection PROCEDURE: CT CHEST ABDOMEN WO CONTRAST PQRS Compliance Statement: One or more of the following individualized dose reduction techniques were utilized for this examination: 1. Automated exposure control 2. Adjustment of the mA and/or kV according to patient size 3. Use of iterative reconstruction technique CT CHEST ABDOMEN WO CONTRAST Clinical Indication: Reason: wide pulse pressure, chest pain, Comparison: None. TECHNIQUE: Helical CT imaging of the chest and abdomen is performed without IV contrast. Per report, patient has iodine allergy. Findings: Evaluation of vascular structures, solid organs and bowel is limited without oral and IV contrast, decreasing sensitivity for detection of pathology. The great vessels are normal caliber. No mediastinal hematoma. Cannot evaluate for dissection without IV contrast. There is coronary artery disease. There is no mediastinal adenopathy. Cardiac size is normal, no pericardial effusion. There is no pleural abnormality. There is a large bulla in the posterior upper right hemithorax measuring up to 8.6 cm. Central airways are patent. There is moderate centrilobular and paraseptal emphysema. Mild scarring or atelectasis in the inferior lingula. Liver, gallbladder, spleen, pancreas, adrenal glands, and kidneys are normal. Moderate atherosclerotic calcification of the abdominal aorta, no aneurysm. No obvious abnormality of the stomach. No dilated small bowel. The appendix is not imaged. Visualized colon without wall thickening. No abdominal adenopathy or free fluid. There are old compression fractures of the T9, T10, and T11 vertebral bodies. T10 has been treated with vertebroplasty. There is right hip screw and intramedullary elidia. Anterior cervical spine fusion hardware is partially seen. IMPRESSION: 1. No acute abnormality in the chest or abdomen. 2. Moderate pulmonary emphysema. Electronically signed by: Dallas Goodwin MD (10/06/2020 3:39 PM) [id number] DICTATED AND SIGNED BY: DALLAS GOODWIN MD DATE: 10/06/20 1539 CC: JEREMY ROSSI DO; FLO [place]ARTIN ~ [place] [address] IMAGING REPORT Signed PATIENT: AMY CAREY ACCOUNT: [id number] : 1955 LOCATION: ER AGE: 64 SEX: F EXAM STATUS: REG ER ORD. PHYSICIAN: JACKIE ANNE MD REASON: chest pain, dyspnea, back pain PROCEDURE: CHEST PA & LATERAL Exam: Chest 2 view INDICATION: Chest pain TECHNIQUE: Frontal and lateral views the chest Comparisons: 10/06/2020 FINDINGS: The cardiomediastinal silhouette and pulmonary vessels are within normal limits. Patchy bibasilar airspace disease. No pleural effusion. IMPRESSION: Patchy bilateral airspace disease, with the lung bases may represent atypical/viral infectious process. Electronically signed by: Collins Pate MD (10/08/2020 9:49 PM) [facility] DICTATED AND SIGNED BY: COLLINS PATE MD DATE: 10/08/202148 CC: JACKIE ANNE MD; FLO MARTIN ~ Heart Score: HEART Score for Chest Pain: HEART Score for Chest Pain Response (Comments) Value History Moderately Suspicious 1 ECG Nonspecific Repolarizatio 1 Age >45 - < 65 1 Risk Factors 1 or 2 Risk Factors 1 Troponin < Normal Limit 0 Total 4 Risk Factors: Risk Factors: DM, Current or recent (<one month) smoker, HTN, HLP, family history of CAD, obesity. Risk Scores: Score 0 - 3: 2.5% MACE over next 6 weeks - Discharge Home Score 4 - 6: 20.3% MACE over next 6 weeks - Admit for Clinical Observation Score 7 - 10: 72.7% MACE over next 6 weeks - Early Invasive Strategies Course & Med Decision Making: Course & Med Decision Making Pertinent Labs and Imaging studies reviewed. (See chart for details) Discussed presentation, testing and tx. plan with Dr. Roach- plan transfer to [facility] . Pain management, vertebroplasty evaluation and MRI. Will cover for DVT with Eliquis since it is short acting. Reviewed prior CT-and visit. Impression: 1. Thoracic vertebral compression fractures T9,T10, T11 2. Leukocytosis 13.9 3. Elevated Glucose 141 4. Elevated D-dimer 1.62 5. Elevated CRP 23.1 6. DM glucose 141 7. Acute on Chronic Respiratory failure- CO retention, Respiratory acidosis 8. COPD exacerbation 9. Tobacco abuse 10. Atypical pneumonia/basilar infiltrates versus atelectasis [] Dragon Disclaimer: Dragon Disclaimer: This electronic medical record was generated, in whole or in part, using a voice recognition dictation system. Departure Departure: Referrals: FLO MARTIN (PCP) Sabrina Disclaimer This chart was dictated in whole or in part using Voice Recognition software in a busy, high-work load, and often noisy Emergency Department environment. It may contain unintended and wholly unrecognized errors or omissions. Dragon Disclaimer This chart was dictated in whole or in part using Voice Recognition software in a busy, high-work load, and often noisy Emergency Department environment. It may contain unintended and wholly unrecognized errors or omissions. JACKIE ANNE MD Oct 08, 2020 20:06
[2020-10-08] MEDS ORDERED: fentaNYL 25MCG/HR 1 PATCH PATCH TD SCH (21:00)
[2020-10-08] MEDS ORDERED: fentaNYL 25MCG/HR 1 PATCH PATCH TD ONE (21:15)
--- NOTE | 2020-10-08 21:52 | RAD ---
Exam: Chest 2 view INDICATION: Chest pain TECHNIQUE: Frontal and lateral views the chest Comparisons: 10/06/2020 FINDINGS: The cardiomediastinal silhouette and pulmonary vessels are within normal limits. Patchy bibasilar airspace disease. No pleural effusion. IMPRESSION: Patchy bilateral airspace disease, with the lung bases may represent atypical/viral infectious process. Electronically signed by: Collins Arguello MD (10/08/2020 9:49 PM) LIS
[2020-10-08] MEDS ORDERED: ONDANSETRON PF 4 MG/2 ML VIAL. ONE (22:29)
[2020-10-08] MEDS ORDERED: IV RINGERS SOLUTION,LACTATED 1,000 ML IV SCH (23:00)
[2020-10-08] MEDS ORDERED: ONDANSETRON PF 4 MG/2 ML VIAL. IVP ONE (23:00)
[2020-10-08] MEDS ORDERED: ASPIRIN CHEWABLE 81 MG TABLET. PO ONE (23:00)
[2020-10-08 23:08] VITALS: BP 207/99
[2020-10-08] MEDS ORDERED: IPRATRPIUM/ALBUTEROL 0.5/2.5MG 3 ML NEBU. ONE (23:56)
[2020-10-09 00:14] LABS: BACTERIA,URINE 0 /HPF (0-FEW); BILIRUBIN,URINE NEG (NEG); CLARITY,URINE CLEAR; COLOR,URINE YELLOW; GLUCOSE,URINE NEG (NEG); NITRITE,URINE NEG (NEG); RBC,URINE 0 /HPF (0-2); SQUAMOUS EPITHELIAL CELL,UR FEW /LPF; UROBILINOGEN,URINE 0.2 mg/dL (0.2 mg/dL); WBC,URINE OCC /HPF (0-4)
[2020-10-09 00:16] LABS: BARBITURATES NEG (NEG); BENZODIAZEPINES NEG (NEG); CANNABINOIDS NEG (NEG); COCAINE NEG (NEG); METHADONE NEG (NEG); OPIATES POS (NEG); PHENCYCLIDINE NEG (NEG)
[2020-10-09 00:36] LABS: AMPHETAMINE/METHAMPHETAMINE NEG (NEG)
[2020-10-09 00:56] LABS: BASO # 0.1 x10^3/uL (0.0-0.2); BASO % 1 % (0-3); EOS # 0.1 x10^3/uL (0.0-0.7); EOS % 1 % (0-3); HEMATOCRIT 40.5 % (36.0-47.0); HEMOGLOBIN 13.3 g/dL (12.0-15.5); LYMPH % 21 % (24-48); MEAN CORPUSCULAR HEMOGLOBIN 32 pg (25-35); MEAN CORPUSCULAR HGB CONC 33 g/dL (31-37); MEAN CORPUSCULAR VOLUME 96 fL (79-100); MONO % 7 % (0-9); NEUT # 9.7 x10^3uL (1.8-7.7); NEUT % 70 % (31-73); PLATELET COUNT 241 x10^3/uL (140-400); RED BLOOD COUNT 4.21 x10^6/uL (3.50-5.40); RED CELL DISTRIBUTION WIDTH 15.2 % (11.5-14.5); WHITE BLOOD COUNT 13.9 x10^3/uL (4.0-11.0)
[2020-10-09 01:12] LABS: CALCIUM 9.1 mg/dL (8.5-10.1); CREATININE 0.8 mg/dL (0.6-1.0); GFR 72.7; POTASSIUM 4.5 mmol/L (3.5-5.1)
[2020-10-09 01:16] LABS: ALBUMIN 3.8 g/dL (3.4-5.0); C REACTIVE PROTEIN 23.1 mg/L (0-3.3); DIRECT BILIRUBIN 0.1 mg/dL (0.0-0.2); MAGNESIUM 1.9 mg/dL (1.8-2.4); TOTAL BILIRUBIN 0.5 mg/dL (0.2-1.0); TOTAL PROTEIN 7.4 g/dL (6.4-8.2)
[2020-10-09 01:24] LABS: BGAS PH 7.3 (7.35-7.45)
[2020-10-09] MEDS ORDERED: APIXABAN 2.5 MG TABLET PO SCH (02:30)
[2020-10-09] MEDS ORDERED: AZITHROMYCIN 250 MG TABLET. PO ONE (02:30)
[2020-10-09] MEDS ORDERED: cloNIDine TTS-2 1 PATCH PATCH TD ONE (02:30)
--- NOTE | 2020-10-09 05:44 | EKG ---
[address] [address] Test Date: 2020-10-08 Test Time: 23:31:54 Pat Name: AMY CAREY Department: Room: Gender: F [employer]: SUM[employer] : 1955 Requested By: JACKIE ANNE Order Number: [id number] Reading MD: Measurements Intervals [place] Rate: 98 P: 66 OK: 138 QRS: 108 QRSD: 82 T: 81 QT: 354 QTc: 454 Interpretive Statements SINUS RHYTHM RIGHTWARD AXIS NO SPECIFIC ECG ABNORMALITIES RI6.02 No previous ECG available for comparison
== END 2020-10-09 05:04 | disposition short-term general hospital (02) ==
LOC: ER 19:59
DX: J44.1 Chronic obstructive pulmonary disease with (acute) exacerbation (principal); M19.90 Unspecified osteoarthritis, unspecified site; I10 Essential (primary) hypertension; G43.909 Migraine, unspecified, not intractable, without status migrainosus; G89.29 Other chronic pain; M54.6 Pain in thoracic spine; F17.200 Nicotine dependence, unspecified, uncomplicated; Z88.2 Allergy status to sulfonamides; Z88.1 Allergy status to other antibiotic agents; Z88.5 Allergy status to narcotic agent; Z91.012 Allergy to eggs; Z91.011 Allergy to milk products
CPT/HCPCS: 36415; 36600; 71046; 80048; 80076; 80307; 81001; 82550; 82803; 83605; 83690; 83735; 83880; 84443; 84484; 85025; 85379; 85610; 85730; 86140; 87040; 93005; 94640; 96361; 96372; 96374; 99285; J0456; J2060; J2405; J3010; J7120; 96360

== ENCOUNTER → 2020-10-16 | Outpatient (CLI) | payer BC ==
[2020-10-08 23:08] VITALS: BP 207/99
--- NOTE | 2020-10-16 14:52 | RAD ---
ANKLE RIGHT 3V DATE: 10/16/2020 12:00 AM INDICATION: Reason: ANKLE PAIN / Spl. Instructions: / History: COMPARISON: None. FINDINGS: Bones: There is no evidence of acute fracture or dislocation. Joints: The ankle mortise is congruent. No widening of the distal tibiofibular syndesmosis. Miscellaneous: None. IMPRESSION: No acute osseous abnormality. Electronically signed by: Wilbert Sosa MD (10/16/2020 2:49 PM) [id number]
== END ==
LOC: DXRAD 13:14
PROVIDERS: ATTEND Physician Assistant
DX: M25.571 Pain in right ankle and joints of right foot (principal)
CPT/HCPCS: 73610